=== PATIENT | male | born 1965 | race African-American/Black ===

== ENCOUNTER 2022-03-25 18:30 | Emergency (ER) | payer OTHER ==
[2022-03-25 18:42] VITALS: BP 155/99; PULSE 112; RESP 18; TEMP 97.8; BMI 34.3
[2022-03-25] MEDS ORDERED: ASPIRIN 81 MG CHEWABLE TABLETS PO ONE (18:50)
[2022-03-25] MEDS ORDERED: ASPIRIN 81 MG CHEWABLE TABLETS ONE (18:50)
[2022-03-25] MEDS ORDERED: FAMOTIDINE 20 MG/50 ML IVPB 20 MG/50 ML MG IVPB ONE ×2 (19:14→19:27)
[2022-03-25] MEDS ORDERED: MAG HYDROX/AL HYDROX/SIMETH -MYLANTA- ORAL SUSPENSION PO ONE (19:14)
[2022-03-25 19:49] LABS: CHLORIDE 106 mmol/L (98-107); INR 1.11 (0.83-1.09); PROTHROMBIN TIME (PATIENT) 12.8 SEC (9.7-13.0); SODIUM 139 mmol/L (136-145)
[2022-03-25 19:51] LABS: ACTIVATED PTT 29.1 SECONDS (25.2-36.5); CALCIUM 9.7 mg/dL (8.5-10.1)
[2022-03-25 19:53] LABS: ALBUMIN 3.6 g/dl (3.4-5.0); ANION GAP 10 MMOL/L (8-16); BLOOD UREA NITROGEN 27.8 mg/dL (7-18); CO2 23 mmol/L (21-32); GLUCOSE,RANDOM 134 mg/dL (74-106)
[2022-03-25 19:54] LABS: BASO % 0.3 % (0-2.0); EOS % 1.9 % (0-4.5); HEMATOCRIT 44.9 % (35.4-49); HEMOGLOBIN 14.5 GM/dL (11.7-16.9); LYMPH % 28.3 % (8-40); MCH 31.5 pg (25.7-33.7); MCHC 32.3 g/dl (32.0-35.9); MEAN CELL VOLUME 97.4 fl (80-96); MEAN PLT VOLUME 8.8 fl (7.5-11.1); MONO % 8.4 % (3.8-10.2); NEUT % 61.1 % (42.8-82.8); PLATELET COUNT 378 10^3/uL (134-434); RBC 4.61 M/mm3 (4.00-5.60); RDW 13.1 % (11.9-15.9); WHITE BLOOD COUNT 13.4 K/mm3 (4.0-10.0)
[2022-03-25 19:55] LABS: CREATININE 1.7 mg/dL (0.55-1.3); SGOT/AST 48 U/L (15-37); SGPT/ALT 44 U/L (13-61)
[2022-03-25 19:57] LABS: BILIRUBIN,TOTAL 0.4 mg/dL (0.2-1); TOT PROT 7.6 g/dl (6.4-8.2)
[2022-03-25 19:58] LABS: ALK PHOS 70 U/L (45-117)
[2022-03-25] MEDS ORDERED: morphine CARPU-JECT 4 MG/1 ML DISP.SYRIN IVPUSH ONE (20:06)
[2022-03-25] MEDS ORDERED: HEPARIN NA (PORCINE) 5,000 UNITS/ML 1ML VIAL IVPUSH ONE (20:18)
[2022-03-25] MEDS ORDERED: HEPARIN NA (PORCINE) 5,000 UNITS/ML 1ML VIAL IVPUSH PRN ×2 (20:19)
[2022-03-25] MEDS ORDERED: morphine SULFATE 4 MG/ML VIAL ONE (20:21)
[2022-03-25] MEDS ORDERED: ATORVASTATIN CA 80 MG TABLET (FP) PO ONE (20:21)
[2022-03-25] MEDS ORDERED: HEPARIN INFUSION - 25,000 UNITS/500 ML INFUS.BAG IVPB SCH (20:30)
[2022-03-25] MEDS ORDERED: ATORVASTATIN CA 80 MG TABLET (FP) ONE (20:34)
[2022-03-25] MEDS ORDERED: HEPARIN NA (PORCINE) 5,000 UNITS/ML 1ML VIAL ONE (20:34)
[2022-03-25] MEDS ORDERED: HEPARIN INFUSION - 25,000 UNITS/500 ML INFUS.BAG IVPB ONE (20:34)
== END 2022-03-25 20:55 | disposition short-term general hospital (02) ==
LOC: JER 18:30
DX: I21.3 ST elevation (STEMI) myocardial infarction of unspecified site (principal)
CPT/HCPCS: 0241U-QW; 36415; 71045-TC-FY; 80053; 82550; 82553; 83605; 84484; 85025; 85610; 85730; 86850; 86900; 86901; 93005; 93010; 99284-25; J1644

== ENCOUNTER 2024-06-28 15:02 | Emergency (ER) | payer OTHER ==
[2024-06-28 15:10] VITALS: PULSE 81; BMI 31.9
[2024-06-28 16:22] LABS: BASO % 0.2 % (0-2.0); EOS % 1.4 % (0-4.5); HEMATOCRIT 43.7 % (35.4-49); HEMOGLOBIN 14.5 GM/dL (11.7-16.9); LYMPH % 10.2 % (8-40); MCH 32.9 pg (25.7-33.7); MCHC 33.2 g/dl (32.0-35.9); MEAN CELL VOLUME 99.3 fl (80-96); MEAN PLT VOLUME 7.3 fl (7.5-11.1); MONO % 12.2 % (3.8-10.2); PLATELET COUNT 274 10^3/uL (134-434); RDW 12.8 % (11.9-15.9); WHITE BLOOD COUNT 7.6 K/mm3 (4.0-10.0)
[2024-06-28] MEDS ORDERED: ACETAMINOPHEN INJECTION 100 ML ONE (16:26)
[2024-06-28 16:27] LABS: *STOOL FOR OCCULT BLOOD NEGATIVE (NEGATIVE)
[2024-06-28 16:32] LABS: PH,URINE 5.5 (5.0-8.0); URINE APPEARANCE CLEAR; URINE BILIRUBIN NEGATIVE (NEGATIVE); URINE COLOR YELLOW; URINE GLUCOSE (UA) 3+ (NEGATIVE); URINE KETONE NEGATIVE (NEGATIVE); URINE LEUK ESTERASE NEGATIVE (NEGATIVE); URINE NITRITE NEGATIVE (NEGATIVE); URINE PROTEIN NEGATIVE (NEGATIVE); URINE UROBILINOGEN 0.2 mg/dL (0.2-1.0)
[2024-06-28] MEDS: ACETAMINOPHEN 1000 MG/100 ML BAG IVPB ONE (16:40)
[2024-06-28 16:44] LABS: POTASSIUM 4.2 mmol/L (3.5-5.1)
[2024-06-28 16:46] LABS: ALBUMIN 3.8 g/dl (3.4-5.0); BLOOD UREA NITROGEN 18.6 mg/dL (7-18); CALCIUM 9.2 mg/dL (8.5-10.1)
[2024-06-28 16:50] LABS: CREATININE 1.6 mg/dL (0.55-1.3)
[2024-06-28 16:52] LABS: BILIRUBIN,TOTAL 0.6 mg/dL (0.2-1); TOT PROT 7.1 g/dl (6.4-8.2)
[2024-06-28] MEDS ORDERED: LIDOCAINE 4% PATCH TP ONE (17:03)
[2024-06-28] MEDS ORDERED: METHOCARBAMOL 500 MG TABLET ONE (17:03)
[2024-06-28] MEDS: LIDOCAINE 5% TOPICAL PATCH TP ONE (17:16)
[2024-06-28] MEDS: METHOCARBAMOL 500 MG TABLET PO ONE (17:16)
[2024-06-28 20:17] VITALS: RESP 19; TEMP 98
[2024-06-28] MEDS ORDERED: LIDOCAINE PATCH REMOVAL MC SCH (22:00)
[2024-06-28 23:19] VITALS: BP 138/70
== END 2024-06-28 23:19 | disposition home or self-care (01) ==
LOC: JER 15:02
PROC: 3E033NZ Introduction of Analgesics, Hypnotics, Sedatives into Peripheral Vein, Percutaneous Approach (ICD-10-PCS; principal; 2024-06-28)
DX: R33.9 Retention of urine, unspecified (principal); M54.50 Low back pain, unspecified
CPT/HCPCS: 36415; 74176-TC; 80053; 81003; 82272; 85025; 87086; 99284-25; J0131